=== PATIENT | female | born 1960 | race Caucasian/White ===

== ENCOUNTER 2016-09-25 14:27 | Emergency (ER) | payer OTHER ==
[~2016-09-25] VITALS: Ht 167.6 cm; Wt 61.5 kg
[2016-09-25 14:32] VITALS: Ht 167.6 cm; Wt 61.5 kg
[2016-09-25 16:07] LABS: ADD SCAN DIFF NO
[2016-09-25 16:08] LABS: BASOPHILS % 0.2 % (0.0-2.0); EOSINOPHILS # 0.1 10^3/ul (0.0-0.5); EOSINOPHILS % 1.5 % (0.0-7.0); HEMATOCRIT 32.8 % (37.0-47.0); HEMOGLOBIN 10.8 g/dl (12.0-16.0); LYMPHOCYTES # 2.2 10^3/ul (0.8-2.9); LYMPHOCYTES % 34.3 % (15.0-51.0); MEAN CORPUSCULAR HEMOGLOBIN 30.7 pg (29.0-33.0); MEAN CORPUSCULAR HGB CONC 32.9 g/dl (32.0-37.0); MEAN CORPUSCULAR VOLUME 93.2 fl (82.0-101.0); MEAN PLATELET VOLUME 10.4 fl (7.4-10.4); MONOCYTE # 0.3 10^3/ul (0.3-0.9); MONOCYTES % 5.2 % (0.0-11.0); NEUTROPHIL # 3.8 10^3/ul (1.6-7.5); NEUTROPHILS % 58.5 % (39.0-77.0); PLATELET COUNT 204 10^3/UL (140-415); RED BLOOD COUNT 3.52 10^6/ul (4.20-5.40); RED CELL DISTRIBUTION WIDTH 13.3 % (11.5-14.5); WHITE BLOOD COUNT 6.5 10^3/ul (4.8-10.8)
--- NOTE | 2016-09-25 16:32 | RADRPT ---
PROCEDURE: CT Brain without. CLINICAL INDICATION: Syncope and weakness. TECHNIQUE: A CT of the brain was performed on multidetector high-resolution CT scanner utilizing a xial sections from the skull base through the vertex without contrast. The scan was reviewed in sof t tissue brain and high frequency resolution bone algorithm windows. Images were reviewed on a high -resolution PACS workstation. One or more the following does reduction techniques were utilized: Aut omated exposure control, adjustment of the mA/ or kV according to patient's size, or use of iterativ e reconstruction technique. The exam CTDI = 44.03 mGy and the DLP = 720.23 mGy-cm. COMPARISON: None available . FINDINGS: The ventricles and sulci are mildly prominent indicative of volume loss. There is no intracranial he morrhage, mass effect or midline shift. No abnormal intra-axial or extra-axial fluid collections ar e seen. The gee/white matter differentiation is preserved. There are mild scattered foci of hypoattenuation in the white matter, which are nonspecific in etiol ogy but likely reflect chronic small vessel ischemic changes. There are mild intracranial vascular calcifications consistent with atherosclerosis. The visualized paranasal sinuses are essentially fior ar. IMPRESSION: 1. No acute intracranial hemorrhage, transcortical infarction or mass effect. 2. Mild intracranial atherosclerosis and chronic small vessel ischemic changes. 3. Mild generalized cerebral volume loss. RPTAT: HH .Gissell Deleon MD, MD Date Time Electronically viewed and signed by .Gissell Deleon MD, MD on 09/25/2016 16:31 .N/
[2016-09-25 16:34] LABS: ALANINE AMINOTRANSFERASE 28 IU/L (13-69); ALBUMIN 4.8 g/dl (3.3-4.9); ALBUMIN/GLOBULIN RATIO 1.84; ALKALINE PHOSPHATASE 70 IU/L (42-121); ANION GAP 17 (8-16); ASPARTATE AMINO TRANSFERASE 28 IU/L (15-46); BLOOD UREA NITROGEN 17 mg/dl (7-20); CALCIUM 9.7 mg/dl (8.4-10.2); CARBON DIOXIDE 28 mmol/L (21-31); CHLORIDE 100 mmol/L (97-110); CREATININE 0.79 mg/dl (0.44-1.00); GLUCOSE 158 mg/dl (70-220); POTASSIUM 4.3 mmol/L (3.5-5.1); SODIUM 141 mmol/L (135-144); TOTAL PROTEIN 7.4 g/dl (6.1-8.1)
--- NOTE | 2016-09-25 17:15 | ERD ---
ER Documentation Chief Complaint Date/Time DATE: 09/25/16 TIME: 17:12 Chief Complaint aloc after fall x 2 days ROS All systems reviewed and are negative except as per history of present illness. Allergies Allergies: Coded Allergies: No Known Drug Allergies (Verified Allergy, Unknown, 09/25/16) PMhx/Soc History of Surgery: Yes (c-sectionx2, left foot surg) Anesthesia Reaction: No Hx Neurological Disorder: No Hx Respiratory Disorders: No Hx Cardiac Disorders: No Hx Psychiatric Problems: No Hx Miscellaneous Medical Probl: No Hx Alcohol Use: Yes (socially) Hx Substance Use: No Hx Tobacco Use: Yes (5-6 cigarettes daily) Smoking Status: Current every day smoker Physical Exam Vitals Vital Signs Date Time Temp Pulse Resp B/P Pulse Ox O2 Delivery O2 Flow Rate FiO2 09/25/16 14:32 98.1 69 18 165/96 99 Physical Exam Const: [] Head: Atraumatic Eyes: Normal Conjunctiva ENT: Normal External Ears, Nose and Mouth. Neck: Full range of motion..~ No meningismus. Resp: Clear to auscultation bilaterally Cardio: Regular rate and rhythm, no murmurs Abd: Soft, non tender, non distended. Normal bowel sounds Skin: No petechiae or rashes Back: No midline or flank tenderness Ext: No cyanosis, or edema Neur: Awake and alert Psych: Normal Mood and Affect Result Diagram: 09/25/16 1603 Results 24 hrs Laboratory Tests Test 09/25/16 16:03 White Blood Count 6.510^3/ul Red Blood Count 3.5210^6/ul Hemoglobin 10.8g/dl Hematocrit 32.8% Mean Corpuscular Volume 93.2fl Mean Corpuscular Hemoglobin 30.7pg Mean Corpuscular Hemoglobin Concent 32.9g/dl Red Cell Distribution Width 13.3% Platelet Count 63810^3/UL Mean Platelet Volume 10.4fl Neutrophils % 58.5% Lymphocytes % 34.3% Monocytes % 5.2% Eosinophils % 1.5% Basophils % 0.2% Nucleated Red Blood Cells % 0.0/100WBC Neutrophils # 3.810^3/ul Lymphocytes # 2.210^3/ul Monocytes # 0.310^3/ul Eosinophils # 0.110^3/ul Basophils # 0.010^3/ul Nucleated Red Blood Cells # 0.010^3/ul [place] THOMAS Sep 25, 2016 17:15
[2016-09-25 17:23] LABS: TROPONIN-I < 0.012 ng/ml (0.00-0.12)
== END 2016-09-25 17:37 | disposition home or self-care (01) ==
LOC: FTE 14:27
DX: S00.03XA Contusion of scalp, initial encounter (principal); S06.0X0A Concussion without loss of consciousness, initial encounter; F17.210 Nicotine dependence, cigarettes, uncomplicated; W19.XXXA Unspecified fall, initial encounter; Y92.9 Unspecified place or not applicable
CPT/HCPCS: 70450; 80053; 84484; 85025; 93005

== ENCOUNTER 2017-01-04 11:55 | Day surgery (SDC) | payer OTHER ==
[~2017-01-04] VITALS: Ht 152.4 cm; Wt 59.3 kg
[2017-01-04] MEDS ORDERED: INSULIN PUMP (12:55)
[2017-01-04] MEDS ORDERED: METAMUCIL (12:55)
[2017-01-04] MEDS ORDERED: LOTENSIN (12:55)
[2017-01-04] MEDS ORDERED: SYNTHROID (12:55)
--- NOTE | 2017-01-04 13:29 | OPPN ---
Date/Time of Note Date/Time of Note DATE: 01/04/17 TIME: 13:27 Diverticulosis left colon otherwise normal . repeat colonoscopy in 10 years follow-up as outpatient with primary MD High-fiber diet Operative Report Preoperative Diagnosis Screening colonoscopy Postoperative Diagnosis Diverticulosis left colon very few small ones grade 1 internal/external hemorrhoids otherwise normal Operation/Procedure Performed Colonoscopy up to cecum Surgeon see signature line news production assistant Dr. novak Second assist: KENNEDI GONZALEZ MD Anesthesia: MAC Estimated blood loss: none Transfusion Required none Specimen None Grafts/Implants none Complications none OSMAR SPARROW MD Jan 04, 2017 13:29
[2017-01-04] MEDS ORDERED: PROPOFOL 20 ML ONE (13:44)
[2017-01-04 14:01] VITALS: BP 134/64; RESP 14
--- NOTE | 2017-01-05 07:22 | GILP ---
DATE OF PROCEDURE: PREOPERATIVE DIAGNOSIS: Screening colonoscopy. ANESTHESIA: Procedure done anesthesia. ANESTHESIOLOGIST: POSTOPERATIVE DIAGNOSIS: Few diverticula noted in left colon, otherwise normal colonoscopy. DESCRIPTION OF PROCEDURE: The patient was put in left lateral decubitus after obtaining informed consent. Rectal exam done. Retroverted uterus was felt. Advanced an Olympus video colonoscope all the way to cecum. Appendiceal opening and ileocecal valve were identified. Photography done. Cecum, ascending colon, transverse colon essentially normal. In the left colon few scattered diverticula, very small ones were noted. No evidence of diverticulitis or any stricture. The scope was slowly withdrawn and the rectum was unremarkable including retroflexion. Grade I hemorrhoids noted. Postop, patient had no complication. Recommend follow up as outpatient. Repeat colonoscopy in 10 years. Dictated By: OSMAR WOLF Conf#: [id number] DID#: [id number] MTDD
== END 2017-01-04 15:27 | disposition home or self-care (01) ==
LOC: GIL 11:55
PROVIDERS: ATTEND Internal Medicine
DX: Z12.11 Encounter for screening for malignant neoplasm of colon (principal); K57.30 Diverticulosis of large intestine without perforation or abscess without bleeding; E11.9 Type 2 diabetes mellitus without complications; I10 Essential (primary) hypertension; E03.9 Hypothyroidism, unspecified
CPT/HCPCS: 82962

== ENCOUNTER 2017-07-24 10:05 | Emergency (ER) | END 2017-07-24 12:39 | disposition home or self-care (01) ==